=== PATIENT | female | born 1990 | race Caucasian/White ===

== ENCOUNTER 2025-02-25 13:36 | Outpatient (CLI) | payer MEDICAID, SELFPAY | END 2025-02-25 13:37 | disposition home or self-care (01) | LOC: AMB 02-27 22:02 | PROVIDERS: Visit Provider Emergency Medicine | DX: R07.89 Other chest pain (principal) | CPT/HCPCS: A0425; A0427 ==

== ENCOUNTER 2025-02-25 14:07 | Emergency (ER) | payer MEDICAID, SELFPAY ==
--- OUTSIDE RECORDS SUMMARY | 2025-02-25 14:09 | XMS_ITS | Clinical Summary ---
Author Organization [facility] Address [address] [place] [address] Care Team Providers Care Health And Fitness Professor Name Role Phone Miya James DO Primary Care Provider [phone] Allergies Active Allergy Reactions Criticality Noted Date Comments Baclofen Alopecia 03/17/2023 Medications hydrOXYzine HCL (ATARAX) 50 mg tablet Take 50 mg by mouth. Active ibuprofen (ADVIL; MOTRIN) 600 mg tabletIndicati ons:Neck pain, chronic,Chroni c pain due to trauma Take 1 Tablet (600 mg) by mouth every 6 hours if needed for Pain. Maximum of 3200 mg in 24 hours. 100 Tablet 3 09/18/19 24 Active fluticasone (50 mcg per actuation) nasal solution (FLONASE)Indic ations:Seasona l allergies Inhale 1 Burt into affected nostril(s) once daily. 48 g 2 11/21/19 24 Active gabapentin (NEURONTIN) 100 mg capsule Take 100 mg by mouth 3 times daily if needed (nerve pain, anxiety). Active lamoTRIgine 25 mg tablet Take 50 mg by mouth once daily. 02/06/20 24 Active cyclobenzaprin e (FLEXERIL) 5 mg tabletIndicati ons:Neck pain, chronic,Chroni c pain due to trauma Take 1 Tablet (5 mg) by mouth 3 times daily if needed for Muscle Spasm. 30 Tablet 10/22/19 25 Active multivitamin (MVI) tabletIndicati ons:Routine general medical examination at health care facility Take 1 Tablet by mouth once daily. 30 Tablet 10/22/19 25 Active cholecalcifero l (Vitamin D) 1,000 unit capsuleIndicat ions:Vitamin D deficiency Take 1 Capsule (1,000 units) by mouth once daily. 30 Capsule 10/22/19 25 Active acetaminophen (TYLENOL EXTRA STRGTH) 500 mg tabletIndicati ons:Neck pain, chronic,Chroni c pain due to trauma Take 2 Tablets (1,000 mg) by mouth every 6 hours if needed for Pain. Max acetaminophen dose: 4000mg in 24 hrs. 100 Tablet 1 12/23/19 25 Active Kurvelo (28) 0.15-0.03 mg tabletIndicati ons:PCOS (polycystic ovarian syndrome) Take 1 Tablet by mouth once daily. 84 Tablet 12/23/19 25 Active nicotine 7 mg/24 hr (NICODERM; HABITROL) 7 mg/24 hr patchIndicatio ns:Nicotine use Apply 1 Patch on dry, clean, hairless skin once daily. 30 Patch 3 12/23/19 25 Active nicotine 21 mg/24 hr (NICODERM; HABITROL) 21 mg/24 hr patchIndicatio ns:Nicotine abuse Apply 1 Patch on dry, clean, hairless skin once daily. 14 Patch 3 12/23/19 25 Active nicotine 14 mg/24 hr (NICODERM; HABITROL) 14 mg/24 hr patchIndicatio ns:Nicotine abuse Apply 1 Patch on dry, clean, hairless skin once daily. 14 Patch 3 12/23/19 25 Active metFORMIN (GLUCOPHAGE XR) 500 mg Extended-Relea se tabletIndicati ons:PCOS (polycystic ovarian syndrome) TAKE 1 TABLET BY MOUTH DAILY INCREASE BY 1 PILL WEEKLY 90 Tablet 02/16/20 25 Active metFORMIN (GLUCOPHAGE XR) 500 mg Extended-Relea se tabletIndicati ons:PCOS (polycystic ovarian syndrome) Take 1 Tablet (500 mg) by mouth once daily. 90 Tablet 11/10/19 25 2024 Discontinued Active Problems Problem Noted Date Diagnosed Date ASCUS with positive high risk HPV cervical 09/29 Overview (12/30/2024): 09/2023 ASCUS/HPV+, 16/18 negative 10/2023 Prosperity: suggestive of ANSHU 1 12/2024 LSIL/HPV+, HPV 16/18 negative Plan: HPV-based testing due 12/2025 Vitamin D deficiency 09/20/2023 Methamphetamine use disorder, moderate, in early remission 09/18/2023 Chronic pain due to trauma 09/18/2023 Neck pain, chronic 09/18/2023 Schizoaffective disorder, bipolar type Gastroesophageal reflux disease 09/18/2023 Small intestinal bacterial overgrowth (SIBO) 08/2023 Asthma 09/18/2023 Seasonal allergies 09/18/2023 Nicotine use 09/18/2023 Gastroesophageal reflux dise ase with esophagitis without hemorrhage 03/11/2023 Esophageal dysphagia 03/11/2023 Abdominal pain, generalized 03/11/2023 Flatulence, eructation and gas pain 03/11/2023 Encounters Date Type Department Care Team Description 02/11/2025 Refill [facility] [address] [place] [address] Yinka Ram MD Refill Request (Metformin) 01/20/2025 Nurse Triage [facility] [address] [place] [address] Miya James, Chest Pain; Low Blood Sugar (shaky) 12/30/2024 Telephone [facility] [address] [place] [address] Citlalli Carroll MD Pap Plan 12/22/2024 3:30 PM CDT Office Visit [facility] [address] [place] [address] Citlalli Carroll MD Physical (34 year old ); Undertaker Assistant Exam (previous colp /); Medication Management; Form 12/22/2024 Travel from Last 3 Months Family History Medical History Relation Name Comments No Known Problems Brother Other Father tachycardia Diabetes Maternal Grandfather Diabetes Maternal Grandmother No Known Problems Mother Relation Name Status Comments Brother Father Maternal Grandfather Maternal Grandmother Mother Social History Tobacco Use Types Packs/Day Years Used Date Smoking Tobacco: Never Passive Smoke Exposure: Never Smokeless Tobacco: Never Tobacco Cessation:Counseling Given: Yes Alcohol Use Standard Drinks/Week Comments Not Currently 0 (1 standard drink = 0.6 oz pur e alcohol) sober since 02/04 PHQ-2 Answer Date Recorded PHQ-2 TOTAL SCORE 4 09/18/2023 Social Connections Answer Date Recorded Do you often feel lonely or isolated from those around you? 0 10/21/2024 Alcohol Use Answer Date Recorded How often do you have a drink containing alcohol ? 0 12/22/2024 Average Number of Drinks Not on file 025 How often do you have five or more drinks on one occasion? 0 12/22/2024 Financial Resource Strain Answer Date R ecorded Difficulty of Paying Living Expenses 3 10/21/2024 Difficulty of Paying Living Expenses Not on file 10/21/2024 Food Insecurity Answer Date Recorded Do you worry your food will run out before you are able to buy more? 1 10/21/2024 Transportation Needs Answer Date Record ed Does lack of transportation keep you from medica l appointments? 1 10/21/2024 Does lack of transportation keep you from work, meetings or getting things that you need? 1 10/21/2024 Housing Stability Answer Date Recorded What is your housing situation today? 1 10/21/2024 Utilities Answer Date Recorded Do you have trouble paying f or utilities (for example, heat, electricity, water, phone)? 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 Gender Identity Not on file Sexual Orientation Not on file Obstetrics History Last Filed Vital Signs Vital Sign Reading Time Taken Comments Blood Pressure 115/77 12/22/2024 3:25 PM CDT Pulse 94 12/22/2024 3:25 PM CDT Temperature 37.8 C (100 F) 03/17/2023 2:21 PM ASSISTANT STORE MANAGER Respiratory Rate 20 03/17/2023 2:21 PM ASSISTANT STORE MANAGER Oxygen Saturation 97% 12/22/2024 3:25 PM CDT Inhaled Oxygen Concentration - - Weight 95 kg (209 lb 8 oz) 12/22/2024 3:25 PM CD T Height 161.5 cm (5' 3.58) 12/22/2024 3:25 PM CD T Body Mass Index 36.43 12/22/2024 3:25 PM CDT Plan of Treatment Health Maintenance Due Date Last Done Comments Tetanus booster 12/02/1999 Hepatitis B series for 19+ ( 1 of 3 - 19+ 3-dose series) 12/02/2007 Pneumococcal series for age 6-49 (1 of 2 - PCV) 12/02/2007 HPV series for age 9-45 (1 - 3-dose SCDM series) 12/02/2015 Depression screening for age 12+ 09/20/2024 09/21/19 24, 09/18/2023 Influenza Vaccine (#1) 2024 BMI (ht and wt on same day) for age 18+ 12/22/2025 12/22/2024, 09/18/2023 Pap test for age 21-65 12/22/2025 , 12/22/2024, 10/25/2023 (Verified in Care Everywhere or Patient Record), Additional history exists RSV vaccine for adults or (1 - 1-dose 75+ series) 12/02/2063 HIV for age 15-65 Completed 12/22/2024, , 09/18/2023, Additional history exists Hepatitis C screening for ag e 18-79 Completed 12/22/2024, 10/21/2024, 09/18/2023, Additional history exists Procedures Procedure Name Priority Date/Time Associated Diagnosis Comments SYPHILIS CONFIRMATION Routine 12/22/2024 4:33 PM CDT Unprotected sexual intercourse RPR Routine 12/22/2024 4:33 PM CDT Unprotected sexual intercourse ANTI HCV Routine 12/22/2024 4:33 PM CDT Unprotected sexual intercourse HBSAG (HBS) Routine 12/22/2024 4:33 PM CDT Unprotected sexual intercourse TREPONEMA PALLIDUM Routine 12/22/2024 4: 33 PM CDT Unprotected sexual intercourse ANTI HIV 1/2 Routine 12/22/2024 4:33 PM CDT Unprotected sexual intercourse LIPID PANEL Routine 12/22/2024 4:33 PM CDT Screening cholesterol level PLATELET COUNT Routine 12/22/2024 4:33 PM CDT Screening for metabolic disorder ALT (SGPT) Routine 12/22/2024 4:33 PM CDT Screening for metabolic disorder AST (SGOT) Routine 12/22/2024 4:33 PM CDT Screening for metabolic disorder HEMOGLOBIN A1C MONITORING (POCT) Routine 12/22/2024 4:33 PM CDT Screening for diabetes mellitus MERCERIZING RANGE FEEDER THIN PREP PAP SCREEN IMAGED Routine 12/22/2024 4:15 PM CDT Cervical cancer screening HPV HIGH RISK Routine 12/22/2024 4:15 PM CDT Cervical cancer screening TRICHOMONAS, HERMINIO, AND BACTERIAL VAGINOSIS BY MARCIE Routine 12/22/2024 4:15 PM CDT Unprotected sexual intercourse GC CHLAMYDIA TRACH PROBE Routine 12/22/2024 4:15 PM CDT Unprotected sexual intercourse from Last 3 Months Results * (ABNORMAL) TREPONEMA PALLIDUM [83467.1] (12/22/2024 4:33 PM CDT) TREPONEMA PALLIDUM Reactive(A ) Non-Reacti ve 12/22/2024 11:02 PM CDT [facility] Blood BLOOD SPECIMEN / Unknown [facility] / Unknown 12/22/2024 4:33 PM CDT 12/22/2024 4:34 PM CDT Narrative [facility] - 12/22/2024 11:02 PM CDT RPR has been reflexed. us Citlalli Carroll MD SEND OUTS Fi nal Result [facility] [address] [place] [address], * SYPHILIS CONFIRMATION (12/22/2024 4:33 PM CDT) SYPHILIS CONFIRMATION See Separate Report 12/27/2024 10:11 AM CDT [facility] Blood BLOOD SPECIMEN / Unknown [facility] / Unknown 12/22/2024 4:33 PM CDT 12/23/2024 12:24 PM CDT Citlalli Carroll MD SEND OUTS Fi nal Result Performing Organization Address [facility] Co de Phone Number [facility] [address] [place] [address], [place] * HBSAG (HBS) [94994.2] (12/22/2024 4:33 PM CDT) HEPATITIS B SURFACE ANTIGEN NON-REACT IKER NON-REACT IKER 12/23/2024 12:44 PM CDT [facility] Comment: For additional information, please refer to http://Full Circle CRM/faq/MFP052 (This link is being provided for informational/ educational purposes only.) Blood BLOOD SPECIMEN / Unknown [facility] / Unknown 12/22/2024 4:33 PM CDT 12/22/2024 4:34 PM CDT Citlalli Carroll MD SEND OUTS Fi nal Result Performing Organization Address [facility] Co de Phone Number [facility] [address] [address], * ANTI HCV [07179.2] (12/22/2024 4:33 PM CDT) HEPATITIS C ANTIBODY NON-REACT IKER NON-REACT IKER 12/23/2024 12:44 PM CDT [facility] Comment: HCV antibody was non-reactive. There is no laboratory evidence of HCV infection. In most cases, no further action is required. However, if recent HCV exposure is suspected, a test for HCV RNA (test code 45175) is suggested. For additional information please refer to http://HCDC.PubNub/faq/PWC37h3 (This link is being provided for informational/ educational purposes only.) Blood BLOOD SPECIMEN / Unknown [facility] / Unknown 12/22/2024 4:33 PM CDT 12/22/2024 4:34 PM CDT Citlalli Carroll MD SEND OUTS Fi nal Result [facility] [address] [address], * RPR (12/22/2024 4:33 PM CDT) RPR Non-reacti ve Non-reacti ve 12/23/2024 12:24 PM CDT [facility] Blood BLOOD SPECIMEN / Unknown [facility] / Unknown 12/22/2024 4:33 PM CDT 12/22/2024 11:02 PM CDT Narrative [facility] - 12/23/2024 12:24 PM CDT A second Treponema specific test will be performed to determine whether assay result is False Positive, indicates probable past infection or detecting early infection. (If early infection is suspected, recommend repeat testing in 2 weeks). Sent to [facility] for confirmation. Citlalli Carroll MD SEND OUTS Fi nal Result Performing Organization Address [facility]/ZIP Co de Phone Number [facility] [address] [place] [address], * (ABNORMAL) PLATELET COUNT (12/22/2024 4:33 PM CDT) PLATELET COUNT 592(H) 140 - 400 Thousand/u L 12/23/2024 4:21 AM CDT [facility] Blood BLOOD SPECIMEN / Unknown [facility] / Unknown 12/22/2024 4:33 PM CDT 12/22/2024 4:34 PM CDT Citlalli Carroll MD HEMATOLOGY Fi nal Result [facility] [address] [address], [place] [phone] * ANTI HIV 1/2 [28650.0] (12/22/2024 4:33 PM CDT) Pathologist [facility] HIV FINAL INTERPRETATOIN HIV NEGATIVE 12/23/2024 12:44 PM CDT [facility] Comment: HIV-1 antigen and HIV-1/HIV-2 antibodies were not detected. There is no laboratory evidence of HIV infection. HIV AG/AB, 4TH GEN NON-REACTIV E NON-REAC TIVE 12/23/2024 12:44 PM CDT [facility] Blood BLOOD SPECIMEN / Unknown [facility] / Unknown 12/22/2024 4:33 PM CDT 12/22/2024 4:34 PM CDT Citlalli Carroll MD SEND OUTS Fi nal Result Performing Organization Address [facility]/ZIP Co de Phone Number [facility] [address] [address], [place] [phone] * ALT (SGPT) (12/22/2024 4:33 PM CDT) Pathologist [facility] ALT 17 6 - 29 U/L 12/23/2024 4:21 AM CDT [facility] Blood BLOOD SPECIMEN / Unknown [facility] / Unknown 12/22/2024 4:33 PM CDT 12/22/2024 4:34 PM CDT Citlalli Carroll MD CHEMISTRY Fi nal Result Performing Organization Address [facility]/ZIP Co de Phone Number [facility] [address] [address], [place] [phone] * AST (SGOT) (12/22/2024 4:33 PM CDT) Pathologist [facility] AST 14 10 - 30 U/L 12/23/2024 4:21 AM CDT [facility] Blood BLOOD SPECIMEN / Unknown [facility] / Unknown 12/22/2024 4:33 PM CDT 12/22/2024 4:34 PM CDT Citlalli Carroll MD CHEMISTRY Fi nal Result Performing Organization Address [facility]/ZIP Co de Phone Number [facility] [address] [address], [place] [phone] * POCT Hemoglobin A1C Monitoring (12/22/2024 4:33 PM CDT) POC HEMOGLOBIN A1C 5.2 <6.0 % OF TOTAL HGB 12/22/2024 4:[address] [facility] Comment: Any point of care results exhibiting inconsistency with the patient's clinical status should be repeated using a different testing method. Blood BLOOD SPECIMEN / Unknown [facility] / Unknown 12/22/2024 4:33 PM CDT 12/22/2024 4:34 PM CDT Citlalli Carroll MD CHEMISTRY Fi nal Result Performing Organization Address [facility] Co de Phone Number [facility] [address] [address], [place] [phone] [place] [address], [place] [phone] * (ABNORMAL) LIPID PANEL (12/22/2024 4:33 PM CDT) CHOLESTEROL, TOTAL 206(H) <200 mg/dL 12/23/2024 4:21 AM CDT [facility] TRIGLYCERIDES 176(H) <150 mg/dL 12/23/2024 4:21 AM CDT [facility] HDL CHOLESTEROL 60 > OR = 50 mg/dL 12/23/2024 4:21 AM CDT [facility] NON HDL CHOLESTEROL 146(H) <130 mg/dL (calc) 12/23/2024 4:21 AM CDT [facility] Comment: For patients with diabetes plus 1 major ASCVD risk factor, treating to a non-HDL-C goal of <100 mg/dL (LDL-C of <70 mg/dL) is considered a therapeutic option. CHOL/HDLC RATIO 3.4 <5.0 (calc) 12/23/2024 4:21 AM CDT [facility] LDL-CHOLESTEROL 117(H) mg/dL (calc) 12/23/2024 4:21 AM CDT [facility] Comment: Reference range: <100 Desirable range <100 mg/dL for primary prevention; <70 mg/dL for patients with CHD or diabetic patients with > or = 2 CHD risk factors. LDL-C is now calculated using the Tulio calculation, which is a validated novel method providing better accuracy than the Friedewald equation in the estimation of LDL-C. Joel SS et al. FRANKY. 2013;310(19): 2835-5248 (http://education.[employer].Main Street Hub/faq/UUV227) Blood BLOOD SPECIMEN / Unknown [facility] / Unknown 12/22/2024 4:33 PM CDT 12/22/2024 4:34 PM CDT Citlalli Carroll MD CHEMISTRY Fi nal Result [facility] [address] [place] [address], * TRICHOMONAS, HERMINIO, AND BACTERIAL VAGINOSIS BY MARCIE [[id number]] - vaginal (12/22/2024 4:15 PM CDT) HERMINIO SPECIES Negative Negative 11:22 AM CDT [facility] HERMINIO GLABRATA Negative Negative 12/23/2024 11:22 AM CDT [facility] TRICHOMONAS VVA Negative Negative 11:22 AM CDT [facility] BACTERIAL VAGINOSIS Negative Negative 12/23/2024 11:22 AM CDT [facility] Other VAGINAL SWAB / Unknown Non-Blood / Unknown 12/22/2024 4:15 PM CDT 12/22/2024 4:37 PM CDT us Citlalli Carroll MD MICROBIOLOGY Fi nal Result [facility] [address] [place] [address], [place] * (ABNORMAL) MERCERIZING RANGE FEEDER THIN PREP PAP SCREEN IMAGED (12/22/2024 4:15 PM CDT) Case Report Gynecologic Cytology Report Case: [id number] Authorizing Provider: Citlalli Carroll Collected: 12/22/2024 1615 MD Harika Ordering Location: [facility] Received: 12/22/2024 1637 Clinic First Screen: Cynthia Clifford Pathologist: Sonu Pettit MD Specimen: MERCERIZING RANGE FEEDER ThinPrep Vial Screening, Cervical 12/30/2024 5:42 PM CDT [facility] INTERPRETATION/ RESULT LOW GRADE SQUAMOUS INTRAEPITHELIAL LESION (LSIL)(A) (none) 12/30/2024 5:42 PM CDT [facility] at 1741 CDT SPECIMEN ADEQUACY Satisfactory for evaluation Endocervical component present 12/30/2024 5:42 PM CDT [facility] HPV REQUEST HPV and PAP 12/30/2024 5:42 PM CDT [facility] Date of LMP 09/30/2024 12/30/2024 5:42 PM CDT [facility] Last Pap Date 09/18/2023 12/30/2024 5:42 PM CDT [facility] Last Pap Result ASCUS 5:42 PM CDT [facility] Abnormal Pap or Prosperity Bx in last 5 years Yes 12/30/2024 5:42 PM CDT [facility] Menstrual Status Regular Periods 12/30/2024 5:42 PM CDT [facility] Prosperity Bx Done Today No 12/30/2024 5:42 PM CDT [facility] Additional Information None given 12/30/2024 5:42 PM CDT [facility] Comment: Cytology is screened at [facility] - [address], [place] [address] and [facility] - [address], [place] [address] and [facility] - [address] [place] [address] Interpreted at [facility] - [address], [place] [address] Automated Review Successful 12/30/2024 5:42 PM CDT [facility] Comment:Specimen processed s uccessfully by automated replenishment specialist device, ThinPrep Imaging System, [employer] ANCILLARY TESTING MERCERIZING RANGE FEEDER HPV Ordered, Please see separate report 12/30/2024 5:42 PM CDT [facility] Note The pap test is a screening technique, not a diagnostic procedure. It is used primarily to screen for squamous cancers and precursor lesions. Published studies have shown that it is subject to both false negative and false positive results. The pap test should not be used as the sole means to diagnose or exclude pre-malignant and malignant lesions. 12/30/2024 5:42 PM CDT [facility] Other (Cervical) Non-Blood / Unknown 12/22/2024 4:15 PM CDT 12/22/2024 4:37 PM CDT Citlalli Carroll MD PATHOLOGY/CYTOLOGY Final Result [facility] [address] [place] [address], [place] * GC CHLAMYDIA TRACH PROBE [[id number]] - vaginal (12/22/2024 4:15 PM CDT) CHLAMYDIA PROBE Negative 11:39 AM CDT [facility] N GONORRHOEAE PROBE Negative 12/23/2024 11:39 AM CDT [facility] Other VAGINAL SWAB / Unknown Non-Blood / Unknown 12/22/2024 4:15 PM CDT 12/22/2024 4:37 PM CDT Citlalli Carroll MD MICROBIOLOGY nal Result Performing Organization Address [facility]/ZIP Co de Phone Number [facility] [address] [place] [address], * (ABNORMAL) HPV HIGH RISK (12/22/2024 4:15 PM CDT) TYPE 16 Negative Negative 12/24/2024 5:39 PM CDT [facility] TYPE 18 Negative Negative 12/24/2024 5:39 PM CDT [facility] OTHER HIGH RISK TYPES Positive(A) Negative 12/24/2024 5:39 PM CDT [facility] Other (Cervical) Non-Blood / Unknown 12/22/2024 4:15 PM CDT 12/23/2024 10:28 AM CDT Narrative [facility] - 12/24/2024 5:39 PM CDT Specimen is positive for the DNA of any one of, or combination of, the following high risk HPV types: 31, 33, 35, 39, 45, 51, 52, 56, 58, 59, 66, 68. HPV types 16 and 18 DNA were undetectable or below the pre-set threshold. Methodology: Emely Huber 4800 HPV Test Citlalli Carroll MD MICROBIOLOGY nal Result Performing Organization Address [facility] Co de Phone Number [facility] [address] [place] [phone], from Last [address] [place] [address] Care Teams Health And Fitness Professor Relationship Specialty Start Date End Date Miya James DO [address] [place] [address] PCP - General Family Practice 09/18/23
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
--- OUTSIDE RECORDS SUMMARY | 2025-02-25 14:10 | XMS_ITS | Encounter Summary ---
Author Organization [facility] Address [address] [place] [address] Care Team Providers Care Skein Drier Name Role Phone Norma Delaney PA-C Unavailable [phone] Amber Pardo PA-C Unavailable [phone] Geoff Sandoval DO Unavailable Fern Warner NP Unavailable [phone] Geoff Sandoval DO Primary Care Provider + [phone] Unavailable [phone] Norma Delaney PA-C Unavailable [phone] Ketty Archer PA-C Unavailable [phone] Fern Warner NP Unavailable [phone] Ketty Archer PA-C Unavailable Encounter Details Date Type Department Care Team (Late st Contact Info) Description 09/13/2023 [facility] [address] [address] Marybeth Berkowitz CMA Social History Tobacco Use Types Packs/Day Years Used Date Smoking Tobacco: Former Cigarettes Smokeless Tobacco: Never Alcohol Use Standard Drinks/Week Comments Not Currently [...] How often do you attend chur or hinduism services? More than 4 times per year 03/01/2023 Do you belong to any clubs o r organizations such as voodoo groups, unions, fraternal or athletic groups, or [...] 03/01/2023 PHQ-2 Answer Date Recorded PHQ-2 Score 6 09/12/2023 [facility] Occupational Stress Questionnaire Answer Date [...] Answer Date Recorded Do you have housing? (Housin g is defined as stable permanent housing [...] on file Sexual Orientation Not on file documented as of this encounter Plan of Treatment Not on file documented as of this encounter Visit Diagnoses Not on filedocumented in this encounter Additional Health Concerns Assessment Noted Time PHQ-9 Depression Total Score: 18 024 8:45 AM CDT documented as of this encounter Care Teams Skein Drier Relationship Specialty Start Date End Date Geoff Sandoval DO [address] [place] [address] [phone] PCP - General Gastroenterology 07/02/23 Norma Delaney PA-C [address] [place] [address] 242895 Physician Manager Location Gastroenterology 01/28/23 Amber Pardo PA-C [address] [place] [address] 560055 Physician Manager Location Otolaryngology 01/30/23 Geoff Sandoval DO [address] [place] [address] Assigned Gastroenterology Provider 03/16/23 10/05/23 Fern Warner, REYNA [address] [place] [address] Assigned PCP 05/09/23 08/04/[address] [place] [address] [place] [address] Registered Dietitian Dietitian, Registered 09/12/23 Norma Delaney PA-C [address] [place] [address] Assigned Gastroenterology Provider 10/06/23 Ketty Archer PA-C [address] [place] [phone] Assigned PCP 08/05/24 09/03/24 Fern Warner NP [address] [place] [address] Assigned PCP 09/04/24 01/04/25 Ketty Archer PA-C [address] [place] [phone] Assigned PCP 01/05/25 documented as of this encounter
--- OUTSIDE RECORDS SUMMARY | 2025-02-25 14:10 | XMS_ITS | Encounter Summary ---
Author Organization [facility] Address [address] [place] [address] Care Team Providers Care Analytics Senior Manager Name Role Phone Norma Delaney PA-C Unavailable [phone] Amber Pardo PA-C Unavailable [phone] Fern Warner NP Unavailable [phone] Geoff Sandoval DO Primary Care Provider + [phone] Unavailable LinneaNorma gasca PA-C Unavailable [phone] Ketty Archer PA-C Unavailable [phone] Fern Warner NP Unavailable [phone] Ketty Archer PA-C Unavailable [phone] Encounter Details Date Type Department Care Team (Late st Contact Info) Description 10/23/2023 [facility] Advice [address] [address] Marybeth Berkowitz CMA Social History [...] 03/01/2023 How often do you attend chur ch or presybeterian services? More than 4 times per year 03/01/2023 Do you belong to any clubs o r organizations such as sabianism groups, unions, fraternal or athletic groups, or [...] Answer Date Recorded PHQ-2 Score 6 09/12/2023 [facility] - Occupational Stress Questionnaire Answer Date Recorded [...] in an abandoned building, in an overnight fci, or couch-surfing.) Yes 03/01/2023 Are you worried [...] documented as of this encounter Care Teams Analytics Senior Manager Relationship Specialty Start Date End Date Geoff Sandoval DO [address] [place] [address] [phone] PCP - General Gastroenterology 07/02/23 Norma Delaney PA-C [address] [place] [address] 032115 Physician Felter Tennis Balls Gastroenterology 01/28/23 Amber Pardo PA-C [address] [place] [address] 264175 Physician Felter Tennis Balls Otolaryngology 01/30/23 Fern Warner NP [address] [address] Assigned PCP 05/09/23 08/04/[address] [place] [address] [place] [address] Registered Dietitian Dietitian, Registered 09/12/23 Norma Delaney PA-C [address] [place] [address] Assigned Gastroenterology Provider 10/06/23 Ketty Archer PA-C [address] [place] [phone] Assigned PCP 08/05/24 09/03/24 Fern Warner NP [address] [address] Assigned PCP 09/04/24 01/04/25 Ketty Archer PA-C [address] [place] [phone] Assigned PCP 01/05/25 documented as of this encounter
--- OUTSIDE RECORDS SUMMARY | 2025-02-25 14:10 | XMS_ITS | Encounter Summary ---
Author Organization [facility] Address [address] [place] [address] Care Team Providers Care Meat Packager Name Role Phone Norma Delaney PA-C Unavailable [phone] Amber Pardo PA-C Unavailable [phone] Geoff Sandoval DO Unavailable Fern Warner NP Unavailable [phone] Geoff Sandoval DO Primary Care Provider + [phone] Unavailable [phone] Norma Delaney PA-C Unavailable [phone] Ketty Archer PA-C Unavailable [phone] Fern Warner NP Unavailable [phone] Ketty Archer PA-C Unavailable [phone] Encounter Details Date Type Department Care Team (Late st Contact Info) Description 09/13/2023 [facility] [address] [place] [address] [facility] Social History Tobacco Use Types Packs/Day Years [...] How often do you attend chur or confucianism services? More than 4 times per year 03/01/2023 Do you belong to any clubs o r organizations such as judaism groups, unions, fraternal or athletic groups, or [...] Answer Date Recorded PHQ-2 Score 6 09/12/2023 [facility] - Occupational Stress Questionnaire Answer Date [...] in an abandoned building, in an overnight usp, or couch-surfing.) Yes 03/01/2023 Are you worried [...] documented as of this encounter Care Teams Meat Packager Relationship Specialty Start Date End Date Geoff Sandoval DO [address] [place] [address] 425455 PCP - General Gastroenterology 07/02/23 Norma Delaney PA-C [address] [place] [address] 416765 Physician Cloth Framer Gastroenterology 01/28/23 Amber Pardo PA-C [address] [place] [address] 865425 Physician Cloth Framer Otolaryngology 01/30/23 Geoff Sandoval DO [address] [place] [address] Assigned Gastroenterology Provider 03/16/23 10/05/23 Fern Warner, REYNA [address] [place] [address] Assigned PCP 05/09/23 08/04/[address] [place] [address] [facility] [place] [address] Registered Dietitian Dietitian, Registered 09/12/23 Norma Delaney PA-C [address] [place] [address] Assigned Gastroenterology Provider 10/06/23 Ketty Archer PA-C [address] [place] [phone] Assigned PCP 08/05/24 09/03/24 Fern Warner NP [address] [place] [address] Assigned PCP 09/04/24 01/04/25 Ketty Archer PA-C [address] [place] [phone] Assigned PCP 01/05/25 documented as of this encounter
--- OUTSIDE RECORDS SUMMARY | 2025-02-25 14:10 | XMS_ITS | Encounter Summary ---
Author Organization [facility] Address [address] [place] [address] Care Team Providers Care General Duty Nurse Name Role Phone Norma Delaney PA-C Unavailable [phone] Amber Pardo PA-C Unavailable [phone] Fern Warner NP Unavailable [phone] Geoff Sandoval DO Primary Care Provider + [phone] Unavailable ClayNorma guthrie PA-C Unavailable [phone] Ketty Archer PA-C Unavailable [phone] Fern Warner NP Unavailable [phone] Ketty Archer PA-C Unavailable [phone] Encounter Details Date Type Department Care Team (Late st Contact Info) Description 11/13/2023 [facility] Medical Advice [facility] [address] [address] Christin Fontanez, RN Social History Tobacco Use Types Packs/Day Years [...] often do you attend chur ch or amish services? More than 4 times per year 03/01/2023 Do you belong to any clubs o r organizations such as hindu groups, unions, fraternal or athletic groups, or [...] Answer Date Recorded PHQ-2 Score 6 09/12/2023 [facility] - Occupational Stress [...] in an abandoned building, in an overnight chcf, or couch-surfing.) Yes 03/01/2023 Are you worried [...] Noted Time PHQ-9 Depression Total Score: 18 09/11/ 024 8:45 AM CDT documented as of this encounter Care Teams General Duty Nurse Relationship Specialty Start Date End Date Geoff Sandoval DO [address] [place] [address] [phone] PCP - General Gastroenterology 07/02/23 Norma Delaney PA-C [address] [place] [address] 509035 Physician Electrotype Finisher Gastroenterology 01/28/23 Amber Pardo PA-C [address] [place] [address] Physician Electrotype Finisher Otolaryngology 01/30/23 Fern Warner NP [address] [place] [address] Assigned PCP 05/09/23 08/04/[address] [place] [address] [place] [address] Registered Dietitian Dietitian, Registered 09/12/23 Norma Delaney PA-C [address] [place] [address] Assigned Gastroenterology Provider 10/06/23 Ketty Archer PA-C [address] [place] [phone] Assigned PCP 08/05/24 09/03/24 Fern Warner NP [address] [place] [address] Assigned PCP 09/04/24 01/04/25 Ketty Archer PA-C [address] [place] [phone] Assigned PCP 01/05/25 documented as of this encounter
--- OUTSIDE RECORDS SUMMARY | 2025-02-25 14:10 | XMS_ITS | Encounter Summary ---
Author Organization [facility] Address [address] [place] [address] Care Team Providers Care Ocean Freight Manager Name Role Phone Norma Delaney PA-C Unavailable [phone] Amber Pardo PA-C Unavailable [phone] Fern Wanrer NP Unavailable [phone] Geoff Sandoval DO Primary Care Provider + [phone] Unavailable ClayNorma guthrie PA-C Unavailable [phone] Ketty Archer PA-C Unavailable [phone] Fern Warner NP Unavailable [phone] Ketty Archer PA-C Unavailable [phone] Encounter Details Date Type Department Care Team (Late st Contact Info) Description 11/07/2023 [facility] Medical Advice [address] [address] Leeanna Dawn MA Social History Tobacco Use Types Packs/Day Years [...] often do you attend chur ch or islam services? More than 4 times per year 03/01/2023 Do you belong to any clubs o r organizations such as denominational groups, unions, fraternal or athletic groups, or [...] Answer Date Recorded PHQ-2 Score 6 09/12/2023 [facility] - Occupational Stress [...] in an abandoned building, in an overnight alf, or couch-surfing.) Yes 03/01/2023 Are you worried [...] documented as of this encounter Care Teams Ocean Freight Manager Relationship Specialty Start Date End Date Geoff Sandoval DO [address] [place] [address] [phone] PCP - General Gastroenterology 07/02/23 Norma Delaney PA-C [address] [place] [address] [phone] Physician Rewinder Operator Helper Gastroenterology 01/28/23 Amber Pardo PA-C [address] [place] [address] 59[address] Physician Rewinder Operator Helper Otolaryngology 01/30/23 Fern Warner NP [address] [place] [address] 96012 Assigned PCP 05/09/23 08/04/[address] [place] [address] [place] [address] 97[address] Registered Dietitian Dietitian, Registered 09/12/23 Norma Delaney PA-C [address] [place] [address] Assigned Gastroenterology Provider 10/06/23 Ketty Archer PA-C [address] [place] [phone] Assigned PCP 08/05/24 09/03/24 Fern Warner NP [address] [place] [address] Assigned PCP 09/04/24 01/04/25 Ketty Archer PA-C [address] [place] [phone] Assigned PCP 01/05/25 documented as of this encounter
--- OUTSIDE RECORDS SUMMARY | 2025-02-25 14:10 | XMS_ITS | Encounter Summary ---
Author Organization [place] Address [address] [place] [address] Care Team Providers Care Heavy Repairer Name Role Phone Norma Delaney PA-C Unavailable [phone] Amber Pardo PA-C Unavailable [phone] Geoff Sandoval DO Unavailable Fern Warner NP Unavailable [phone] Geoff Sandoval DO Primary Care Provider + [phone] Unavailable [phone] Norma Delaney PA-C Unavailable [phone] Ketty Archer PA-C Unavailable [phone] Fern Warner NP Unavailable [phone] Ketty Archer PA-C Unavailable [phone] Encounter Details Date Type Department Care Team (Late st Contact Info) Description 09/13/2023 [facility] Medical Advice [address] [address] Marybeth Berkowitz CMA Social History [...] How often do you attend chur or buddhist services? More than 4 times per year 03/01/2023 Do you belong to any clubs o r organizations such as sikhism groups, unions, fraternal or athletic groups, or [...] Answer Date Recorded PHQ-2 Score 6 09/12/2023 [facility] Occupational Stress Questionnaire Answer Date [...] in an abandoned building, in an overnight nursing home, or couch-surfing.) Yes 03/01/2023 Are you worried [...] documented as of this encounter Care Teams Heavy Repairer Relationship Specialty Start Date End Date Geoff Sandoval DO [address] [place] [address] [phone] PCP - General Gastroenterology 07/02/23 Norma Delaney PA-C [address] [place] [address] [phone] Physician Fios Line Installer Gastroenterology 01/28/23 Amber Pardo PA-C [address] [place] [address] [phone] Physician Fios Line Installer Otolaryngology 01/30/23 Geoff Sandoval DO [address] [place] [address] Assigned Gastroenterology Provider 03/16/23 10/05/23 Fern Warner, REYNA [address] [place] [address]83 Assigned PCP 05/09/23 08/04/[address] [place] [address] [facility] [place] [address] Registered Dietitian Dietitian, Registered 09/12/23 Norma Delaeny PA-C [address] [place] [address] Assigned Gastroenterology Provider 10/06/23 Ketty Archer PA-C [address] [place] [phone] Assigned PCP 08/05/24 09/03/24 Fern Warner NP [address] [place] [address] Assigned PCP 09/04/24 01/04/25 Ketty Archer PA-C [address] [place] [phone] Assigned PCP 01/05/25 documented as of this encounter
--- OUTSIDE RECORDS SUMMARY | 2025-02-25 14:10 | XMS_ITS | Encounter Summary ---
Author Organization [facility] Address [address] [place] [address]. [place] [address] Care Team Providers Care Wet End Helper Name Role Phone Norma Delaney PA-C Unavailable [phone] Amber Pardo PA-C Unavailable [phone] Geoff Sandoval DO Unavailable Fern Warner NP Unavailable [phone] Geoff Sandoval DO Primary Care Provider + [phone] Unavailable [phone] Norma Delaney PA-C Unavailable [phone] Ketty Archer PA-C Unavailable [phone] Fern Warner NP Unavailable [phone] Ketty Archer PA-C Unavailable [phone] Encounter Details Date Type Department Care Team (Late st Contact Info) Description 09/17/2023 [facility] Medical Advice [address] [address] Chaparrita Lorenzana, KAUR [id number] [place] [address] Social History Tobacco Use Types Packs/Day Years [...] How often do you attend chur or pentecostal services? More than 4 times per year 03/01/2023 Do you belong to any clubs o r organizations such as adventism groups, unions, fraternal or athletic groups, or [...] Answer Date Recorded PHQ-2 Score 6 09/12/2023 [facility] - Occupational Stress Questionnaire Answer [...] in an abandoned building, in an overnight snf, or couch-surfing.) Yes 03/01/2023 Are you worried [...] documented as of this encounter Care Teams Wet End Helper Relationship Specialty Start Date End Date Geoff Sandoval DO [address] [place] [address] [phone] PCP - General Gastroenterology 07/02/23 Norma Delaney PA-C [address] [place] [address] [phone] Physician Lead Business Systems Analyst Gastroenterology 01/28/23 Amber Pardo PA-C [address] [place] [address] Physician Lead Business Systems Analyst Otolaryngology 01/30/23 Geoff Sandoval DO [address] [place] [phone] Assigned Gastroenterology Provider 03/16/23 10/05/23 Fern Warner NP [address] [place] [address] Assigned PCP 05/09/23 08/04/[address] [place] [address] [place] [address] Registered Dietitian Dietitian, Registered 09/12/23 Norma Delaney PA-C [address] [place] [address] 77873 Assigned Gastroenterology Provider 10/06/23 Ketty Archer PA-C [address] [place] [phone] Assigned PCP 08/05/24 09/03/24 Fern Warner NP [address] [place] [address]25 Assigned PCP 09/04/24 01/04/25 Ketty Archer PA-C [address] [place] [address] Assigned PCP 01/05/25 documented as of this encounter
--- OUTSIDE RECORDS SUMMARY | 2025-02-25 14:10 | XMS_ITS | Encounter Summary ---
Author Organization [facility] Address [address] [place] [address]. [place] [address] Care Team Providers Care Supply Chain Vice President Name Role Phone Norma Delaney PA-C Unavailable [phone] Amber Pardo PA-C Unavailable [phone] Geoff Sandoval DO Unavailable Fern Warner NP Unavailable [phone] Geoff Sandoval DO Primary Care Provider + [phone] Unavailable [phone] Norma Delaney PA-C Unavailable [phone] Ketty Archer PA-C Unavailable [phone] Fern Warner NP Unavailable [phone] Ketty Archer PA-C Unavailable [phone] Encounter Details Date Type Department Care Team (Late st Contact Info) Description 09/20/2023 [facility] Medical Advice [address] [address] Chaparrita Lorenzana, KAUR [id number] [place] [address] Social History Tobacco Use Types Packs/Day [...] How often do you attend chur or pentecostalism services? More than 4 times per year 03/01/2023 Do you belong to any clubs o r organizations such as jew groups, unions, fraternal or athletic groups, or [...] Answer Date Recorded PHQ-2 Score 6 09/12/2023 [facility] - Occupational Stress Questionnaire Answer [...] in an abandoned building, in an overnight senior living, or couch-surfing.) Yes 03/01/2023 Are you worried [...] documented as of this encounter Care Teams Supply Chain Vice President Relationship Specialty Start Date End Date Geoff Sandoval DO [address] [place] [address] [phone] PCP - General Gastroenterology 07/02/23 Norma Delaney PA-C [address] [place] [address] [phone] Physician Carpenter Supervisor [employer]en Ship Gastroenterology 01/28/23 Amber Pardo PA-C [address] [place] [address] Physician Carpenter Supervisor [employer] Otolaryngology 01/30/23 Geoff Sandoval DO [address] [place] [phone] Assigned Gastroenterology Provider 03/16/23 10/05/23 Fern Warner NP [address] [place] [address] Assigned PCP 05/09/23 08/04/[address] [place] [address] [place] [address] Registered Dietitian Dietitian, Registered 09/12/23 Norma Delaney PA-C [address] [place] [address] 83308 Assigned Gastroenterology Provider 10/06/23 Ketty Archer PA-C [address] [place] [phone] Assigned PCP 08/05/24 09/03/24 Fern Warner NP [address] [place] [address] 43383 Assigned PCP 09/04/24 01/04/25 Ketty Archer PA-C [address] [place] [address] Assigned PCP 01/05/25 documented as of this encounter
--- OUTSIDE RECORDS SUMMARY | 2025-02-25 14:10 | XMS_ITS | Encounter Summary ---
Author Organization [facility] Address [address] [place] [address]. [place] [address] Care Team Providers Care Autocad Electrical Designer Name Role Phone Norma Delaney PA-C Unavailable [phone] Amber Pardo PA-C Unavailable [phone] Fern Warner NP Unavailable [phone] Geoff Sandoval DO Primary Care Provider + [phone] Unavailable [phone] RhettNorma PA-C Unavailable [phone] Ketty Archer PA-C Unavailable [phone] Fern Warner NP Unavailable [phone] Ketty Archer PA-C Unavailable [phone] Encounter Details Date Type Department Care Team (Late st Contact Info) Description 10/29/2023 [facility] Medical Advice [address] [place] [address] Chaparrita Lorenz[place], [place] [phone] [place], [place] [phone] [place] [address] Social History Tobacco Use Types Packs/Day [...] How often do you attend chur or shinto services? More than 4 times per year 03/01/2023 Do you belong to any clubs o r organizations such as protestant groups, unions, fraternal or athletic groups, or [...] Answer Date Recorded PHQ-2 Score 6 09/12/2023 [facility] - Occupational Stress Questionnaire Answer Date [...] in an abandoned building, in an overnight longterm, or couch-surfing.) Yes 03/01/2023 Are you worried [...] documented as of this encounter Care Teams Autocad Electrical Designer Relationship Specialty Start Date End Date Geoff Sandoval DO [address] [place] [address] PCP - General Gastroenterology 07/02/23 Norma Delaney PA-C [address] [place] [address] 319335 Physician Payroll Accounting Specialist Gastroenterology 01/28/23 Amber Pardo PA-C [address] [place] [address] [phone] Physician Payroll Accounting Specialist Otolaryngology 01/30/23 Fern Warner, REYNA [address] [address] Assigned PCP 05/09/23 08/04/[address] [place] [address] [address] [place] [address] Registered Dietitian Dietitian, Registered 09/12/23 Norma Delaney PA-C [address] [place] [address] Assigned Gastroenterology Provider 10/06/23 Ketty Archer PA-C [address] [place] [address] Assigned PCP 08/05/24 09/03/24 Fern Warner NP [address] [place] [address] Assigned PCP 09/04/24 01/04/25 Ketty Archer PA-C [address] [place] [phone] Assigned PCP 01/05/25 documented as of this encounter
[2025-02-25 14:17] VITALS: BP 122/53; PULSE 98; RESP 16; TEMP 37.2; O2SAT 98; BMI 30.9
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
--- OUTSIDE RECORDS SUMMARY | 2025-02-25 15:22 | XMS_ITS | Data Portability ---
Author Organization [place] - [facility], autoContract - [facility] Address [address] [facility] [address] [place] [address] Assessment Encounter Date Assessment Date Assessment LastModified by Organization Details LastModified Time 09/16/2024 09/16/2024 ASSESSMENT: Patient is a good candidate for conservative care and the prognosis is for a favorable outcome that achieves the patients' goals. We discussed etiology, activity modifications, home care, and other treatment options. Initially, it is recommended that the patient receive in-office treatment 1 times per week for 8 weeks at which time a re-evaluation will be performed to determine an appropriate change in plan. Initially, treatment will focus on joint manipulation to restore range of motion and reduce pain. We will slowly progress to therapeutic exercises and activities to improve function, strength, and stability may also be used as warranted. If the patient is not responding as expected, more invasive procedures will be discussed along with a referral. All considerations above were discussed with the patient and questions answered to satisfaction. If the patient should have any additional questions, or should the condition evolve or worsen, the patient should not hesitate to contact our office. Not available 09/16/2024 17:44:47 09/24/2024 09/24/2024 ASSESSMENT: Patient is a good candidate for conservative care and the prognosis is for a favorable outcome that achieves the patients' goals. We discussed etiology, activity modifications, home care, and other treatment options. Initially, it is recommended that the patient receive in-office treatment 1 times per week for 8 weeks at which time a re-evaluation will be performed to determine an appropriate change in plan. Initially, treatment will focus on joint manipulation to restore range of motion and reduce pain. We will slowly progress to therapeutic exercises and activities to improve function, strength, and stability may also be used as warranted. If the patient is not responding as expected, more invasive procedures will be discussed along with a referral. All considerations above were discussed with the patient and questions answered to satisfaction. If the patient should have any additional questions, or should the condition evolve or worsen, the patient should not hesitate to contact our office. Not available 09/24/2024 20:06:43 12/08/2024 12/08/2024 ASSESSMENT: Patient is a good candidate for conservative care and the prognosis is for a favorable outcome that achieves the patients' goals. We discussed etiology, activity modifications, home care, and other treatment options. Initially, it is recommended that the patient receive in-office treatment 1 times per week for 8 weeks at which time a re-evaluation will be performed to determine an appropriate change in plan. Initially, treatment will focus on joint manipulation to restore range of motion and reduce pain. We will slowly progress to therapeutic exercises and activities to improve function, strength, and stability may also be used as warranted. If the patient is not responding as expected, more invasive procedures will be discussed along with a referral. All considerations above were discussed with the patient and questions answered to satisfaction. If the patient should have any additional questions, or should the condition evolve or worsen, the patient should not hesitate to contact our office. Not available 12/08/2024 18:14:15 12/24/2024 12/24/2024 ASSESSMENT: Patient is a good candidate for conservative care and the prognosis is for a favorable outcome that achieves the patients' goals. We discussed etiology, activity modifications, home care, and other treatment options. Initially, it is recommended that the patient receive in-office treatment 1 times per week for 8 weeks at which time a re-evaluation will be performed to determine an appropriate change in plan. Initially, treatment will focus on joint manipulation to restore range of motion and reduce pain. We will slowly progress to therapeutic exercises and activities to improve function, strength, and stability may also be used as warranted. If the patient is not responding as expected, more invasive procedures will be discussed along with a referral. All considerations above were discussed with the patient and questions answered to satisfaction. If the patient should have any additional questions, or should the condition evolve or worsen, the patient should not hesitate to contact our office. Not available 12/24/2024 18:21:54 Plan of Treatment Reminders Order Date Submit Date Provider Last Modified By Organization Details Last Modified Time Details Appointments None record ed. Lab None record ed. Referral None record ed. Procedures None record ed. Surgeries None record ed. Imaging None record ed. Medication Orders None record ed. Patient TargetsNo targets recorded. Patient InstructionsNo instructions recorded. Reason for Referral None Reported. Problems Name Problem SNOMED Code Status Onset Date Resolution Date Notes Provider Name and Address Organization Details Recorded Time Thoracic segmental dysfunction 558828356 Active 2024 Palomo Leos [place] [address] [facility], [place], [address], [place] [facility] 17:44:48 Low back pain 198531496 Active 2024 Palomo Leos [place] [address] [facility], [place], [address], [place] [facility] 17:44:48 Somatic dysfunction of sacral spine 705234773 Active 2024 Pal[place] Leos [place] [address] [facility], [place], [address], [place] [facility] 17:44:48 Lumbar segmental dysfunction 430190034 Active 2024 Palomo Leos [place] [address] [facility], [place], [address], [place] - [facility] 17:44:48 Neck pain 61598710 Active 2024 Palomo Leos [place] [address] [facility], [facility] [place], [address], [place] - [facility] 18:21:55 Lesion of lumbar spine 469202180 Active 2024 Palomo Leos [place] [address] [facility], [place], [address], [place] - [facility] 18:21:55 Cervical segmental dysfunction 090687358 Active 2024 Palomo Leos [place] [address] [facility], [place], [address], [facility] 18:21:56 Problem Notes None recorded. Procedures Surgical History Date Name Laterality Status Provider Name and Address Organization Details Recorded Time 5 39667: Spinal manipulation , 3 to 4 regions completed [place] [address] [facility] [address], [place], [address], [facility] 12/24/2024 18:22:23 5 52879: Spinal manipulation , 3 to 4 regions completed [place] [address] [facility], [place], [address], [facility] 12/08/2024 18:14:54 5 27847: Spinal manipulation , 3 to 4 regions completed [place] [address] [facility], [place], [address], [facility] 09/24/2024 20:06:43 5 17369: Spinal manipulation , 3 to 4 regions completed [place] [address] [facility], [place], [address], [facility] 09/16/2024 17:46:06 Imaging Results None recorded. Procedure Notes None recorded. Medical Equipment None Reported. Medications Name Sig Start Date Stop Date Status Note LastModified by Organization Details LastModified Time multivitamin tablet TAKE 1 TABLET BY MOUTH EVERY DAY active Not Available Not Available No t Available ketoconazole 2 % shampoo SHAMPOO THE HAIR THOROOUGHLY EACH DAY FOR 3 DAYS active Not Available Not Available N ot Available hydroxyzine HCl 50 mg tablet TAKE 1 TABLET BY MOUTH EVERY 6 HOURS NEEDED FOR ANXIETY OR SLEEP active Not Available Not Available No t Available risperidone 3 mg tablet TAKE 2 TABLETS BY MOUTH DAILY active Not Available Not Available Not Available lamotrigine 25 mg tablet TAKE 3 TABLETS BY MOUTH EVERY DAY active Not Available Not Available No t Available risperidone 2 mg tablet TAKE 1 TABLET BY MOUTH EVERY DAY active Not Available Not Available No t Available gabapentin 300 mg capsule TAKE 1 CAPSULE BY MOUTH THREE TIMES DAILY active Not Available Not Available Not Available magnesium citrate oral solution DRINK 1 BOTTLE 4 HOURS BEFORE THE PROCEDURE active Not Available Not Available No t Available fluticasone propionate 50 mcg/actuatio n nasal spray,suspen willian USE 1 SPRAY IN EACH NOSTRIL DAILY active Not Available Not Available No t Available metformin ER 500 mg tablet,exten ded release 24 hr TAKE 1 TABLET BY MOUTH DAILY active Not Available Not Available Not Available diazepam 5 mg tablet TAKE 1 TABLET BY MOUTH TWICE DAILY NEEDED active Not Available Not Available No t Available Ventolin HFA 90 mcg/actuatio n aerosol inhaler INHALE 2 PUFFS BY MOUTH FOUR TIMES DAILY NEEDED FOR SHORTNESS OF BREATH OR WHEEZING active Not Available Not Available Not Available simethicone 80 mg chewable tablet CHEW AND SWALLOW 3 TABLETS BY MOUTH ONE DAY PRIOR TO THE PROCEDURE active Not Available Not Available No t Available escitalopram 10 mg tablet TAKE 1 TABLET BY MOUTH DAILY IN THE MORNING active Not Available Not Available No t Available Laxative (bisacodyl) 5 mg tablet TAKE 2 TABLETS BY MOUTH AT 10 PM THE EVENING BEFORE YOUR PROCEDURE active Not Available Not Available No t Available bupropion HCl XL 150 mg 24 hr tablet, extended release TAKE 1 TABLET BY MOUTH DAILY IN THE MORNING active Not Available Not Available No t Available Kurvelo (28) 0.15 mg-0.03 mg tablet TAKE 1 TABLET BY MOUTH EVERY DAY active Not Available Not Available No t Available [place] 1/20 (28) 1 mg-20 mcg (21)/75 mg (7) tablet TAKE 1 TABLET BY MOUTH DAILY active Not Available Not Available Not Available Vitals None Recorded Social History None recorded. Functional Status None recorded. Mental Status None recorded. Family History Nothing Reported. Medical History No medical history recorded. Gynecological HistoryNo gynecological history recorded. Obstetrics History GPAL:G 0 P 0 0 0 0 Past Encounters Encounter ID Performer Location Encounter Start Date Encounter Closed Date Diagnosis/Indication Diagnosis SNOMED-CT Code Diagnosis ICD10 Code Diagnosis IMO Codes Diagnosis Note [id number] Palomo Leos [place] [facility] [address] [facility] [address] [place] [address] 09/16/2024 17:08:04 09/16/2024 18:30:57 Lumbar segmental dysfunction 458591970 M99.03 Low back pain 915320986 M54.50 Somatic dy sfunction of sacral spine 199092379 M99.04 Thoracic s egmental dysfunction 443826172 M99.02 [id number] [facility]O [facility] [address] [place] [address] 09/24/2024 19:39:53 09/25/2024 10:56:36 Lumbar segmental dysfunction 877575593 M99.03 Low back pain 629309642 M54.50 Somatic dy sfunction of sacral spine 317991515 M99.04 Thoracic s egmental dysfunction 593410649 M99.02 [id number] Palomo Apolinar [place] [facility] [address] [place] [address] 12/08/2024 17:20:20 12/09/2024 09:33:37 Lumbar segmental dysfunction 381176280 M99.03 Low back pain 551832267 M54.50 Somatic dy sfunction of sacral spine 470899060 M99.04 Thoracic s egmental dysfunction 457643492 M99.02 [id number] Palomo Leos [place] [facility] & [address] [place] [address] 12/24/2024 17:03:18 01/01/2025 17:00:22 Lesion of lumbar spine 438661510 M99.01 Neck pain 23693285 M54.2 Thoracic s egmental dysfunction 839016952 M99.02 Lumbar seg mental dysfunction 348002303 M99.03 Cervical s egmental dysfunction 812691555 M99.01 Health Concerns Section Related Observation LastModified by Organization Detai ls LastModified Time None Recorded Concern Status LastModified by Organization Details LastModified Time None Recorded Advance Directives Directive None Recorded Payers Insurance Date Sequence Insurance Name Policy Number Policy Graham Covered Member ID Graham Member ID Guarantor Name 09/17/2024 [facility] Tamica Morales [id number] Tamica Morales 01/01/2025 1 [employer] - INDIVIDUAL AND FAMILY (HMO) [id number] Tamica Morales [id number] Tamica Morales Notes Date Note Type Note Provider Name and Address Organization Details Recorded Time 09/16/2024 text/html HPI - Lumbar SpineReported by PatientHPIFor location, patient reportsleft. For quality, patient reportsaching. For severity, patient reportsmoderate. For timing, patient reportsmorning. For aggravating factors, patient reportswalking,lifti ng,carrying, andtwisting. For alleviating factors, patient reportsrest. Palomo Leos [place] [address] [facility], [place], [address], [facility] 09/16/2024 17:46:16 09/24/2024 text/html HPI - Lumbar SpineReported by PatientHPIFor location, patient reportsleft. For quality, patient reportsaching. For severity, patient reportsmoderate. For timing, patient reportsmorning. For aggravating factors, patient reportswalking,lifti ng,carrying, andtwisting. For alleviating factors, patient reportsrest. Pal[place] Leos [place] [address] [facility], [place], [address], [facility] 09/24/2024 20:07:08 12/08/2024 text/html HPI - Lumbar SpineReported by PatientHPIFor location, patient reportsleft. For quality, patient reportsaching. For severity, patient reportsmoderate. For timing, patient reportsmorning. For aggravating factors, patient reportswalking,lifti ng,carrying, andtwisting. For alleviating factors, patient reportsrest. Palomo Leos [place] [address] [facility], [place], [address], [facility] 12/08/2024 18:15:07 12/24/2024 text/html HPI - Cervical SpineReported by PatientHPIFor location, patient reportsleft. For quality, patient reportsaching. For severity, patient reportsmoderate. For duration, patient reports2 weeks. For timing, patient reportsgradual. For alleviating factors, patient reportsice. For aggravating factors, patient reportssitting. For associated symptoms, patient reportsno numbness/tingling. Palomo Leos [place] [address] [facility], [place], [address], [facility] 12/24/2024 18:22:32 OBGyn Episode No OBEpisode recorded.
== END 2025-02-25 15:20 | disposition home or self-care (01) ==
LOC: ED 15:20
PROVIDERS: Emergency Provider Emergency Medicine
DX: F41.9 Anxiety disorder, unspecified (principal); G89.29 Other chronic pain; Z79.899 Other long term (current) drug therapy
CPT/HCPCS: 99283